=== PATIENT | male | born 1975 | race Caucasian/White ===

== ENCOUNTER 2018-02-01 07:05 | Outpatient (CLI) | payer BC, SELFPAY ==
[2018-02-02 10:11] LABS: Hepatitis B Surface Ag Negative (NEGAT)
[2018-02-02 10:15] LABS: HIV-1/2 Ag & Ab Screen Negative (NEGAT); Hepatitis C Ab w Rflx HCV PCR Negative (NEGAT)
[2018-02-02 11:05] LABS: Syphilis Serology (RPR) Negative (Negative)
[2018-02-02 13:08] LABS: Chlamydia Result Negative; GC Result Negative; Specimen Description URINE
== END 2018-02-01 07:25 ==
PROVIDERS: PCP Nurse Practitioner Family; Visit Provider Nurse Practitioner Family
DX: Z11.3 Encounter for screening for infections with a predominantly sexual mode of transmission (principal); Z11.4 Encounter for screening for human immunodeficiency virus [HIV]; Z11.59 Encounter for screening for other viral diseases
CPT/HCPCS: 36415; 86803; 87340; 87389; 87491; 87591; 86592

== ENCOUNTER 2018-03-01 08:28 | Outpatient (REF) | payer BC, SELFPAY ==
[2018-03-01 12:54] LABS: Cholesterol 247 mg/dL (50-200); Glucose 116 mg/dL (70-100); HDL Cholesterol 50 mg/dL (40-60); LDL CHOLESTEROL 166 mg/dL (<100); Triglyceride 149 mg/dL (30-150)
[2018-03-02 10:23] LABS: Hepatitis B Surface Ag Negative (NEGAT)
[2018-03-02 10:41] LABS: HIV-1/2 Ag & Ab Screen Negative (NEGAT)
[2018-03-02 10:45] LABS: Hepatitis C Ab w Rflx HCV PCR Negative (NEGAT)
== END 2018-03-01 08:48 ==
LOC: NCHCN 08:28
PROVIDERS: PCP Nurse Practitioner Family; Visit Provider Nurse Practitioner Family
DX: Z00.00 Encounter for general adult medical examination without abnormal findings (principal); D22.9 Melanocytic nevi, unspecified; L72.9 Follicular cyst of the skin and subcutaneous tissue, unspecified; Z11.3 Encounter for screening for infections with a predominantly sexual mode of transmission; Z11.4 Encounter for screening for human immunodeficiency virus [HIV]; Z13.1 Encounter for screening for diabetes mellitus; Z13.220 Encounter for screening for lipoid disorders; Z11.59 Encounter for screening for other viral diseases
CPT/HCPCS: 80061; 82947; 83721; 86803; 87340; 87389

== ENCOUNTER 2018-04-11 10:37 | Outpatient (REF) | payer BC, SELFPAY ==
[2018-04-11 13:51] LABS: Abs Immature Grans 0.01 k/cumm (0.0-0.09); Absolute Basophil Count 0.02 k/cumm (0.0-0.2); Absolute Eosinophil Count 0.12 k/cumm (0.0-0.7); Absolute Monocyte Count 0.42 k/cumm (0.11-0.7); Basophils % 0.4; Eosinophils % 2.5; HCT 40.6 % (40.0-50.0); HGB 13.3 g/dL (13.5-17.5); Immature Grans % 0.2; Lymphocytes % 30.8; Mean Corp. HGB Concentration 32.8 g/dL (32.0-36.0); Mean Corpuscular Hemoglobin 29.2 pg (27.0-33.0); Mean Platelet Volume 10.9 fL (8.0-11.0); Monocytes % 8.6; Neutrophils % 57.5; Platelet Count 259 x1000/uL (130-400); RBC 4.56 m/cumm (4.50-6.00); RBC Distribution Width 12.4 % (11.8-14.1); White Blood Cell Count 4.87 k/cumm (4.4-10.8)
== END 2018-04-11 10:57 ==
LOC: NCHCN 10:37
PROVIDERS: PCP Nurse Practitioner Family; Visit Provider Nurse Practitioner Family
DX: R23.8 Other skin changes (principal); F10.11 Alcohol abuse, in remission
CPT/HCPCS: 85025

== ENCOUNTER 2018-04-25 08:24 | Day surgery (SDC) | payer BC, SELFPAY ==
[2018-04-25 08:59] VITALS: BP 118/87; PULSE 77; RESP 16; TEMP 36.3; O2SAT 97
[2018-04-25] MEDS: Lactated Ringers 1,000 ML 80 ML IV (09:20)
[2018-04-25] MEDS: Lidocaine 1% Multi-Dose 50 ML VIAL (10:16)
--- NOTE | 2018-04-25 10:31 | W.PM.DSUDISC ---
Discharge Plan Disposition Patient Disposition: HOME Condition: Good Discharge Details Reason For Visit: R Dupuytren's Contracture Attending Provider: New Royal Primary Care Provider: Marlena Milton Home Meds and New Rx's Prescriptions: New hydrocodone-acetaminophen 5-325 mg tablet 1 tab PO Q4H PRN (Reason: pain) Qty: 5 RF: 0 Continued meloxicam 15 mg tablet 15 mg PO DAILY Qty: 30 RF: 0 acetaminophen [Tylenol] 325 MG tablet 650 mg PO Q6H PRN RF: 0 montelukast 10 MG tablet 10 mg PO DAILY RF: 0 loratadine [Claritin Liqui-Gel] 10 MG capsule 10 mg PO PRN PRN (Reason: allergies) RF: 0 Zyrtec 10 MG capsule 10 mg PO HS RF: 0 Discharge Instructions Additional Instructions: Activity: You are able to perform light activities with the operative hand. It?s important to move your fingers early to keep from being stiff. Once the initial dressing is removed you should work on hand and wrist range of motions. You should avoid heavy lifting or grasping until your follow-up appointment. Light weight and computer work is okay. Do NOT put direct pressure on the wound and avoid keeping in gloves for a prolonged period. Dressing/Bandage: The dressing should stay on for at least 48-72 hours. The wound should then be covered with a dry dressing such as a gauze wrap or large bandaid. It should stay covered until your follow-up appointment. Medications: Acetaminophen/Tylenol Extra-Strength: take two extra-strength tablets (1000mg) every 8 hours for baseline pain control. Do not take in combination with the prescribed pain medication since it contains Tylenol. You should not have more than 3000mg of Tylenol in a single day. NSAIDs: You may take your regular Mobic Hydrocodone was called in for breakthrough pain. Follow-up: 7-10 days Stand Alone Forms: DSU Post op Instructions, Radha Montero (DSU) Activity:: Elevate Remove Dressings/Wound Care:: 48 hours Shower/Bathe:: 48 hours Diet:: As Tolerated Discharge Orders Discharge Orders: Discharge Order (Routine); Ordered 04/25/18 Ordered By: New Royal DS: Diagnosis Discharge Diagnosis (1) Dupuytren's disease of palm of right hand: Status: Acute
[2018-04-25 11:11] VITALS: BP 129/83; PULSE 82; RESP 18; TEMP 35.8; O2SAT 100
--- NOTE | 2018-04-26 15:53 | ROE_ITS ---
DATE OF SURGERY: April 25, 2018 PREOPERATIVE DIAGNOSIS: Right Dupuytren's contracture with prominent palmar nodule. POSTOPERATIVE DIAGNOSIS: Same. SURGERY: Right palmar fasciectomy for Dupuytren's disease. SURGEON: New Royal M.D. ANESTHESIA: MAC ESTIMATED BLOOD LOSS: 5 cc COMPLICATIONS: None. DISPOSITION: The patient was awakened from anesthesia and taken to the PACU in a stable condition. INDICATION FOR PROCEDURE: Eugene is a 42-year-old who works with his hands. He had worsening contrac ture and prominence of a nodule in the palm of his right hand in line with the right ring finger ray. He has tried to modify his gloves and his positioning of his hands, but continues to have pain with any forceful gripping or grasping. It is interfering with his ability to work. He was examined in the office and showed he did not have any significant contracture, but he did have a very prominent D upuytren's nodule. Given the failure of conservative treatment options, I did offer excision of the Dupuytren's contracture including the large nodule. I reviewed the risks of the procedure to include bleeding, infection, pain, stiffness, damage to nerves and vessels, damage to muscles and tendons, a nd recurrence. Despite these risks, he elected to proceed. PROCEDURE DESCRIPTION: Eugene was greeted in the preoperative holding area. His identity was confirm ed. The correct side was identified and marked. The History and Physical was updated and signed. T he consent was reviewed with the patient and signed. The patient was then taken back to the Operatin g Room. He was placed in a supine position with the right hand on a hand table. A nonsterile tourni quet was placed high up on the right arm. Prophylactic antibiotics in the form of cefazolin were giv en. A time-out was performed for safe surgery. The right arm was prepped with ChloraPrep and draped in a standard fashion. The palm and the surgica l site were then anesthetized with a mixture of 1% lidocaine and 0.5% bupivacaine. A MAC anesthetic was administered. The limb was exsanguinated and the tourniquet was inflated for a total of 11 minut es. A Damon type incision was made in the palm overlying the prominent cord and the nodule. The s kin was incised and the dissection was carried down to the level of the cord. The cord was easily id entifiable. Starting at the distalmost extent, the cord was freed up from the surrounding tissues an d it was released. The cord was then manipulated and removed in whole from the palm. The large nodu le was removed in hole and resected. This was taken back all the way into the deep portion of the pa lm near the distal extent of the transverse carpal ligament. This was resected in whole. There was nothing abnormal about the cord and, therefore, it was not sent to pathology. The wound was thorough ly irrigated. The tourniquet was released. There was some ooze from the skin but no arterial bleedi ng. There was no apparent neurovascular damage or injury. The wound was then closed with a #5-0 nyl on stitch. The wound was dressed with Xeroform, 4x4s, Kerlix, and an Bakari wrap. At the end of the case all counts were correct.
== END 2018-04-25 11:15 | disposition home or self-care (01) ==
PROVIDERS: PCP Nurse Practitioner Family; Visit Provider Student in an Organized Health Care Education/Training Program
PROC: (CPT 26123; principal; 2018-04-25 10:15)
DX: M72.0 Palmar fascial fibromatosis [Dupuytren] (principal)
CPT/HCPCS: 26123; J0690; J1885

== ENCOUNTER 2018-05-08 10:27 | Outpatient (REF) | payer BC, SELFPAY ==
--- NOTE | 2018-05-08 10:03 | SKI_PTH ---
PATIENT: Eugene Chan LOC: [facility] U#:[id number] AGE/SX: 42/M ROOM: RE05/08/[address]: Jv Mccann DO : 1975 BED: DIS: 05/08/2018 SPEC #: [id number] RECD: 05/09/18 12:17 STATUS: JADE REAnanda #: [id number] CLEMENT: 05/08/18 10:[address]: Jv Mccann DEPT: Surgical Specimen RECD BY: Leni Guadalupe ENTERED: 05/09/18 12:18 SP TYPE: CARLTON CHENG DR: Marlena Milton Tissues: 1 - SKIN BIOPSY(SHAVE/PUNCH) 2 - SKIN BIOPSY(SHAVE/PUNCH) Procedures: SKIN LEVEL 4 Comments: [id number]
== END 2018-05-08 10:47 ==
LOC: LBN 10:27
PROVIDERS: PCP Nurse Practitioner Family; Referring Provider Nurse Practitioner Family; Visit Provider Otolaryngology Otolaryngology/Facial Plastic Surgery
DX: D22.39 Melanocytic nevi of other parts of face (principal); D22.62 Melanocytic nevi of left upper limb, including shoulder
CPT/HCPCS: 88305

== ENCOUNTER 2019-04-27 07:14 | Outpatient (CLI) | payer BC, SELFPAY ==
[2019-04-27 08:34] LABS: ALT 30 U/L (16-63); AST 13 U/L (15-37); Alkaline Phosphatase 66 U/L (46-116); Anion Gap 7.2 mmol/L (3-11); BUN 18 mg/dL (7-18); Bilirubin, Total 0.5 mg/dL (0.2-1.0); CO2 28.8 mmol/L (21.0-32.0); CREATININE 1.05 mg/dL (0.70-1.30); Chloride 105 mmol/L (98-107); Glucose 115 mg/dL (74-106); Potassium 4.4 mmol/L (3.5-5.1); Sodium 141 mmol/L (136-145); TSH (W/Ref FT4) 1.25 uIU/mL (0.36-3.74); Total Protein 7.3 g/dL (6.4-8.2)
== END 2019-04-27 07:34 ==
PROVIDERS: PCP Nurse Practitioner Family; Visit Provider Nurse Practitioner Family
DX: R73.03 Prediabetes (principal); E78.70 Disorder of bile acid and cholesterol metabolism, unspecified; F10.11 Alcohol abuse, in remission
CPT/HCPCS: 36415; 80053; 83036; 84443

== ENCOUNTER 2019-04-30 00:53 | Outpatient (CLI) | payer BC, SELFPAY ==
--- NOTE | 2019-04-30 08:10 | DI.CT_ITS ---
EXAM: CT HEAD WO CLINICAL HISTORY: SEVERE HEADACHE, R51. TECHNIQUE: Imaging Protocol: Axial computed tomography images with coronal and sagittal reformatted images were created and reviewed COMPARISON: No exams were available for comparison FINDINGS: Ventricles and Extra axial spaces: Normal in size and morphology for the patient's age. Hemorrhage: None. Cerebral parenchyma: Normal. Midline shift: None. Brainstem/Cerebellum: Normal. Calvarium: Normal. Visualized Paranasal sinuses/Mastoids: Clear. IMPRESSION: Normal CT of the head. RADIATION DOSE DELIVERED: DATA REPOSITORY: All CT scans at this facility are submitted to the National Radiology Data Registry (NRDR) Dose Index Registry (DIR) with the [employer] (ACR). RADIATION OPTIMIZATION: All CT scans at this facility use at least one of these dose optimization te chniques: automated exposure control; mA and/or kV adjustment per patient size (includes targeted exa ms where dose is matched to clinical indication); or iterative reconstruction.
== END 2019-04-30 01:13 ==
PROVIDERS: PCP Nurse Practitioner Family; Visit Provider Nurse Practitioner Family
DX: R51 Headache (principal)
CPT/HCPCS: 70450

== ENCOUNTER 2019-05-12 13:33 | Emergency (ER) | payer BC, SELFPAY ==
--- NOTE | 2019-05-12 13:35 | ED.GENADUL_ITS ---
Discharge Plan Disposition Patient Disposition: HOME Condition: Good Discharge Details Chief Complaint: EyeProblem Clinical Impression: Abrasion, corneal, Hx of metal removed from eye Primary Care Provider: Li Vance ED Provider: Tere De Oliveira Home Meds and New Rx's Prescriptions: Continued acetaminophen [Tylenol] 325 MG tablet 650 mg PO Q6H PRN RF: 0 montelukast 10 MG tablet 10 mg PO DAILY RF: 0 loratadine [Claritin Liqui-Gel] 10 MG capsule 10 mg PO PRN PRN (Reason: allergies) RF: 0 Zyrtec 10 MG capsule 10 mg PO HS RF: 0 Discharge Instructions Instructions: Erythromycin (Into the eye), Corneal Abrasion (ED) Additional Instructions: Please use the erythromycin ointment as was instructed by nursing staff. Please apply half an inch to your right eye 4 times daily for the next 5 days. Please follow-up with your supervisor locomotive on Tuesday. If you develop increased pain, fever/chills, discharge from the eye or the new/worsening symptom please seek care urgently once again. Referrals: Li Vance [Primary Care Provider] - Medical Decision Making Patient is a pleasant 43-year-old male presenting today with chief complaint of foreign body in right eye. He reports a prior to arrival he was working under a car. He is not wearing any eye protection. States that he cut a piece of metal in 2 to foreign body in the right eye. States his is able to visualize this and remove it. However, he states that the sensation persisted and they are questioning if there is still a piece of foreign body in the medial canthus. Patient is up-to-date on tetanus. On exam, patient appears nontoxic. He has no notable injection, discharge. No swelling. Pupils are equal round and reactive, extraocular movement are intact. Fluorescein was used and there is a small area of uptake at the medial aspect of the eye near the 3 o'clock position. He did have a dark spot visualized on my naked eye exam in that medial canthus, however this appears to be an enlarged blood vessel when a slit lamp is used. This may be area of possible contusion as patient reports that this was unusual finding for him and his . He will be placed on erythromycin ointment. Advise follow-up with his supervisor locomotive on Tuesday, he does use corrective lenses. He does not wear contacts. He was given return precautions. All his questions or concerns were addressed and is agreement with plan HPI General Mode of arrival: ambulatory . Date/Time Provider Initiated Documentation: 05/12/19 13:34 . Limitations to Documentation: no limitations . Information obtained by: patient . History of Present Illness 43 year old M presents to the emergency department with the chief complaint of FB right eye, described as mild, and is localized to the eyes. Patient reports no radiatio n. Patient started experiencing this minute(s) (15) and it has been now resolved. No relieving factors improve symptom(s), No exacerbating factors reported . Patient notes no other symptoms.. Patient did receive the following treatments prior to arrival, other (washed eye, removed metal FB) Related Data Home Medications Medication Instructions Recorded Confirmed loratadine [Claritin Liqui-Gel] 10 mg PO PRN PRN 10/07/12 05/12/19 montelukast 10 mg PO DAILY 10/07/12 05/12/19 Zyrtec 10 mg PO HS 06/09/14 05/12/19 acetaminophen [Tylenol] 650 mg PO Q6H PRN tab-cap 03/15/17 05/12/19 Allergies Allergy/AdvReac Type Severity Reaction Status Date / Time hay fever Allergy Mild eyes Uncoded 05/12/19 13:47 itch,runny nose Review of Systems Constitutional Constitutional: Reports as per HPI, Denies chills, Denies fatigue, Denies fever(s) and Denies headache(s) Eyes Eyes: Reports as per HPI ENT Ears, Nose, Mouth, and Throat: Denies headache(s) Cardiovascular Cardiovascular: Reports as per HPI, Denies chest pain and Denies lightheadedness Respiratory Respiratory: Denies cough Integumentary/Breasts Skin/Breast: Reports as per HPI, Denies rash, Denies skin pain and Denies skin swelling Neurologic Neurologic: Denies headache(s) and Denies radicular pain Endocrine Endocrine: Denies fatigue [facility] Social History Smoking/Tobacco Use Status: Never Alcohol Intake: never Drug use: Never Do you feel safe in your relationship?: Yes Exam Const General: cooperative, healthy appearing, comfortable, no acute distress, well developed and well groomed Nutritional Appearance: average body habitus and well nourished Orientation: alert, awake and oriented x3 [facility] Head: normal to inspection, normocephalic and atraumatic Ears: hearing grossly normal bilaterally and external ears normal General nose exam: external nose normal and nares normal Face and sinus: normal facial exam and face symmetric Mouth: oral mucosae normal, lip normal and moist mucous membranes Eyes General: appearance normal, both eyes and all related structures Visual Peck: normal visual peck by confrontation Alignment and Position: alignment normal and position normal Periorbital: periorbital findings normal Eyelids: eyelids normal Cornea: corneas abnormal on the right fluorescein used and abrasion (small, at the 3 o'clock position) and fluorescein used Pupils: PERRL and normal by confrontation EOM: EOM intact bilaterally Resp Effort & Inspection: normal respiratory effort, able to speak in complete sentences and no respiratory distress Skin General skin exam: no rashes or lesions noted Neuro General: patient alert, patient awake and patient oriented x3 Cranial Nerves: CN's II-XI intact bilaterally Cognition: normal cognition Speech: speech normal Gait: normal gait Psych Appearance: grossly normal and well kempt Mental Status: mental status grossly normal Speech and Movement: speech and movement normal
[2019-05-12 13:38] VITALS: BP 138/97; PULSE 72; RESP 16; TEMP 36.8; O2SAT 97
[2019-05-12] MEDS: Balanced Salt Solution 15 ML BTL (13:45)
[2019-05-12] MEDS: Fluorescein STRIPS 100/BOX 1 MG OP (13:50)
[2019-05-12] MEDS: Erythromycin Ophth Oint 3.5 GM TUBE OD (13:55)
== END 2019-05-12 13:50 | disposition home or self-care (01) ==
LOC: ER 13:52
PROVIDERS: Emergency Provider Physician Assistant; PCP Nurse Practitioner Family
DX: S05.01XA Injury of conjunctiva and corneal abrasion without foreign body, right eye, initial encounter (principal); X58.XXXA Exposure to other specified factors, initial encounter
CPT/HCPCS: 99284

== ENCOUNTER 2021-01-27 13:22 | Outpatient (CLI) | payer BC, SELFPAY ==
--- NOTE | 2021-01-27 | DI.RAD_ITS ---
Exam(s) XR ANKLE RT COMPLETE EXAM: XR ANKLE RT COMPLETE CLINICAL HISTORY: RT ANKLE PAIN, M25.571. TECHNIQUE: 2D digital imaging was performed of the right ankle. Three images were obtained. AP, la teral and oblique views were obtained. COMPARISON: No exams were available for comparison FINDINGS: BONES: No acute fracture is present. No bony destructive lesion is seen. JOINTS: The ankle mortise is normally aligned. SOFT TISSUE: Normal. IMPRESSION: Unremarkable radiographs of the right ankle. DATA REPOSITORY: RADIATION DOSE DELIVERED:
--- NOTE | 2021-01-27 | DI.RAD_ITS ---
Exam(s) XR FOOT RT COMPLETE EXAM: XR FOOT RT COMPLETE CLINICAL HISTORY: PAIN, M25.571. TECHNIQUE: 2D digital imaging was performed of the right foot. Three images were obtained. AP, obl ique and lateral views were obtained. COMPARISON: No exams were available for comparison FINDINGS: BONES: No acute fracture is present. No bony destructive lesion is seen. JOINTS: No dislocation present. SOFT TISSUE: Normal. IMPRESSION: Unremarkable radiographs of the right foot. DATA REPOSITORY: RADIATION DOSE DELIVERED:
== END 2021-01-27 13:42 ==
PROVIDERS: PCP Nurse Practitioner Family; Visit Provider Nurse Practitioner Family
DX: M25.571 Pain in right ankle and joints of right foot (principal)
CPT/HCPCS: 73610; 73630

== ENCOUNTER 2021-02-27 17:31 | Outpatient (CLI) | payer BC, SELFPAY ==
--- NOTE | 2021-02-27 | DI.RAD_ITS ---
Exam(s) XR TOE RT GREAT EXAM: XR TOE RT GREAT CLINICAL HISTORY: PAIN IN RIGHT TOE. TECHNIQUE: 2D digital imaging was performed. COMPARISON: CR XR FOOT RT COMPLETE from 01/27/2021 FINDINGS: Soft tissue swelling of the great toe. There are abnormal lucency seen in the medial aspect of the p roximal phalanx near the interphalangeal joint. There is also question of an erosion at the medial a spect of the base of the distal phalanx. Findings could be secondary to osteomyelitis gout could als o be considered. No foreign body or abnormal soft tissue gas. IMPRESSION: Soft tissue swelling and bony erosions at the medial interphalangeal joint of the great toe, osteomye litis versus arthritis such as gout. DATA REPOSITORY: RADIATION DOSE DELIVERED:
--- NOTE | 2021-02-27 17:53 | DI.VRAD_ITS ---
PROCEDURE INFORMATION: Exam: XR Right Toe(s) Exam date and time: 02/27/2021 5:39 PM Age: 45 years old Clinical indication: Toes; Patient HX: Pain in right great toe TECHNIQUE: Imaging protocol: XR Right toes. Views: Minimum 2 views. COMPARISON: CR RIGHT GREAT TOE 12/18/2015 3:47 PM FINDINGS: Bones/joints: No acute fracture or dislocation. Suspicious periarticular bony lucencies about the 1st digit interphalangeal joint. Soft tissues: Soft tissue swelling about the 1st digit. IMPRESSION: Nonspecific soft tissue swelling about the 1st digit with suspicious periarticular bony lucencies about the interphalangeal joint. Presence of any infection should be excluded on clinical grounds. Dictated and Authenticated by: Byron Valentine MD. Ordering:RILEY Brewer MD
== END 2021-02-27 17:51 ==
PROVIDERS: PCP Nurse Practitioner Family; Visit Provider Physician Assistant Medical
DX: M25.571 Pain in right ankle and joints of right foot (principal); M79.89 Other specified soft tissue disorders
CPT/HCPCS: 73660

== ENCOUNTER 2022-01-07 13:36 | Outpatient (CLI) | payer BC, SELFPAY ==
--- NOTE | 2022-01-07 14:18 | DI.RAD_ITS ---
Exam(s) XR ABDOMEN FLAT PLATE EXAM: XR ABDOMEN FLAT PLATE CLINICAL HISTORY: CONSTIPATION-K59.00 TECHNIQUE: COMPARISON: No exams were available for comparison FINDINGS: Single AP view was obtained. Bowel gas pattern is within normal limits. No gross organomegaly. No other significant abnormality seen. IMPRESSION: Negative single view of the abdomen. RADIATION DOSE DELIVERED: Total DLP
--- NOTE | 2022-01-07 14:20 | DI.RAD_ITS ---
Exam(s) XR HIP RT COMPLETE AP PELVIS EXAM: XR HIP RT COMPLETE AP PELVIS CLINICAL HISTORY: PAIN IN RIGHT HIP-M25.551 TECHNIQUE: COMPARISON: No exams were available for comparison FINDINGS: Two views were obtained. There is slight irregularity of the superior acetabular cortex on the right . Cartilaginous joint spaces of the hips may be slightly narrowed. Femoral heads appear intact as v isualized. IMPRESSION: Mild degenerative changes of the hips. RADIATION DOSE DELIVERED: Total DLP
== END 2022-01-07 13:56 ==
LOC: DI 13:38
PROVIDERS: PCP Nurse Practitioner Family; Visit Provider Physician Assistant Medical
DX: M16.0 Bilateral primary osteoarthritis of hip (principal); K59.00 Constipation, unspecified
CPT/HCPCS: 73502; 74018

== ENCOUNTER 2022-01-07 14:22 | Outpatient (REF) | payer BC, SELFPAY ==
--- OUTSIDE RECORDS SUMMARY | 2022-01-07 14:27 | XMS_ITS | Encounter Summary ---
:1975 Author Organization [facility] Address [address] [place] [address] Care Team Providers Name Role Phone Unavailable Primary Care Provider Unavailable Encounter Details Date Type Department Care Team Description 05/08/2018 Hospital Encounter [facility]- Cici Calderon, Provider, [facility] 0 [facility] [phone] [place] [address] (Work) [phone] Social History Tobacco Use Types Packs/Day Years Used Date Smoking Tobacco: Never Assessed Sex Assigned at Date Recorded Not on file documented as of this encounter Discharge Disposition Disposition Code Departure Means Destination Home or Self Jail documented in this encounter Plan of Treatment Not on filedocumented as of this encounter Visit Diagnoses Not on filedocumented in this encounter
--- OUTSIDE RECORDS SUMMARY | 2022-01-07 14:27 | XMS_ITS | Encounter Summary ---
:1975 Author Organization [facility] [place] [address] Care Team Providers Name Role Phone Yoan Marlena Ceasar BOOTH Primary Care Provider Encounter Details Date Type Department Care Team Description 02/07/2017 Telephone Hematology and Oncology at Chela Moran MD [facility] [place] Marcus su HEMATOLOGY/[place] [address] [place] [address] [phone] (Wo rk) Social History Tobacco Use Types Packs/Day Years Used Date Smoking Tobacco: Never Assessed Sex Assigned at Date Recorded Not on file documented as of this encounter Miscellaneous Notes Telephone Encounter - Chela Min MD - 02/07/2017 1:27 PM EST Marlena CHOUDHARY from [facility] calling to discuss Eugene. He has a 10 cm ecchymoses above his right knee that has been present for about 5 weeks and is still present. He has a history of easy bruising. Hehas a history of bruises without trauma. His brother and mother have vwf disease. He has no cbc on file in the [facility] office. He recently had a normal PT, PTT, INR. He had vwf labs drawn. Factor 8 assay was 86% (55-205). Ristocetin co factor 68. vwf factor 8 ag normal. No lab evidence of vwf disease. According to the above results, this is not consistent with vwf disease (confirming tests (total plasma VWF antigen, VWF function (VWF ristocetin cofactor assay), and plasma factor VIII level are normal). Advised to check a cbc. Discussed with Dr. Pulliam. Marlena will put in a referral to our [facility] for further evaluation. Eugene has several questions about his risk due to his FH. Dr. Chela Min MD Hemophilia Attending Physician I agreed with Dr. Min's recommendation to check CBC to rule out thrombocytopenia in the meantime.We will also check if he is on NSAID. We will schedule the patient to complete hemostasis work up here at [facility]. Cary Pulliam MD documented in this encounter Plan of Treatment Not on filedocumented as of this encounter Visit Diagnoses Not on filedocumented in this encounter Care Teams Carpenters Supervisor Relationship Specialty Start Date End Date Marlena Milton, SENIOR ELECTRICAL ESTIMATOR PCP - General Family Medicine 02/09/17 [address] [place] [address] documented as of this encounter
--- OUTSIDE RECORDS SUMMARY | 2022-01-07 14:27 | XMS_ITS | Continuity of Care Document ---
:1975 Author Organization [facility] e Address [address] [place] [address] Encounter [facility] NBR [id number] Date(s): 12/29/21 - 12/29/21 [facility] [address] [place] [address]- Encounter Diagnosis Encounter for drug screening (Discharge Diagnosis) - 12/29/21 Discharge Disposition: Home or Self Care Attending Physician: Levi Fofana. MARIA FERNANDA
--- OUTSIDE RECORDS SUMMARY | 2022-01-07 14:27 | XMS_ITS | Encounter Summary ---
:1975 Author Organization [facility] [place] [address] Care Team Providers Name Role Phone Marlena Milton APRN Primary Care Provider Encounter Details Date Type Department Care Team Description 03/09/2017 Telephone Hematology and Oncol ogy at [facility] [place] [address] Social History Tobacco Use Types Packs/Day Years Used Date Smoking Tobacco: Former Cigarettes 0.3 0.5 Quit : 02/22/1996 Smokeless Tobacco: Never Sex Assigned at Date Recorded Not on file documented as of this encounter Miscellaneous Notes Telephone Encounter - Kenya Castillo RN - 03/09/2017 9:58 AM EST T/c to patient residence and detailed message left with his , Rody, with contact information toreturn call to discuss results and/or recommendations futher. Kenya Castillo MSN RN ===View-only below this line=== ----- Message ----- From: Cary Pulliam MD Sent: 03/08/2017 3:49 PM To: Kenya Castillo, RN Subject: please call Kenya: please call to review normal lab result. Thanks, Cary Results for EUGENE MINA ( ) as of 03/10/2017 09:03 Ref. Range 02/28/2017 11:51 PT Latest Ref Range: 11.8 - 14.0 sec 13.8 INR Latest Ref Range: 0.9 - 1.1 1.1 PTT Latest Ref Range: 25 - 35 sec 30 Fibrinogen Latest Ref Range: 180 - 510 mg/dL 348 Thrombin Time Latest Ref Range: 15 - 20 sec 17 Save Plasma Unknown Sample saved in Lab Factor 8 Assay Latest Ref Range: 50 - 150 % 73 vWF Antigen Latest Units: % 54 vWF Anti Interp Unknown ABO blood group h... vWF Activity Latest Ref Range: 50 - 150 % activity 77 Dr. Pulliam's clinic note 02/28/17 Reprinted in part below. In summary, Eugene has no evidence of bleeding disorder. His easy bruising is likely due to NSAIDs use. We encourage him to avoid NSAIDs and stop drinking alcohol. documented in this encounter Plan of Treatment Not on filedocumented as of this encounter Visit Diagnoses Not on filedocumented in this encounter Care Teams Manager Ob Relationship Specialty Start Date End Date Marlena Milton, CARE TRANSPORT NURSE PCP - General Family Medicine 02/09/17 [address] [place] [address] documented as of this encounter
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
--- OUTSIDE RECORDS SUMMARY | 2022-01-07 14:27 | XMS_ITS | Encounter Summary ---
:1975 Author Organization [facility] [place] [address] Care Team Providers Name Role Phone Marlena Milton Ceasar BOOTH Primary Care Provider Encounter Details Date Type Department Care Team Description 02/28/2017 Hospital Encounter Hematology and Oncol ogy at [facility] [place] [address] Social History Tobacco Use Types Packs/Day Years Used Date Smoking Tobacco: Former Cigarettes 0.3 0.5 Quit : 02/22/1996 Smokeless Tobacco: Never Sex Assigned at Date Recorded Not on file documented as of this encounter Medications at Time of Discharge Medication Sig Dispensed Refills Start Date End Date indomethacin (INDOCIN) 50 50 mg 3 times daily. 0 02/22/2017 mg Capsule acetaminophen (TYLENOL) 500 Take 1,000 mg by 0 mg Tablet mouth every 6 hours as needed for Pain. documented as of this encounter Plan of Treatment Not on filedocumented as of this encounter Procedures Procedure Name Priority Date/Time Associated Comments Diagnosis SAVE PLASMA FOR Routine 02/28/2017 11:51 Ecchymosis Results for this FUTURE COAG STUDIES AM EST procedur e are in the results section. HEMOGRAM Routine 02/28/2017 11:51 Ecchymosis Results for this AM EST procedure are i n the results section. DIFFERENTIAL, Routine 02/28/2017 11:51 Ecchymosis Results fo r this AUTOMATED AM EST procedure are i n the results section. VON WILLEBRAND FACTOR Routine 02/28/2017 11:51 Re sults for this ANTIGEN AM EST procedure are i n the results section. VON WILLEBRAND FACTOR Routine 02/28/2017 11:51 Re sults for this ACTIVITY AM EST procedure are i n the results section. APTT Routine 02/28/2017 11:51 Results for this AM EST procedure are i n the results section. THROMBIN TIME Routine 02/28/2017 11:51 Results fo r this AM EST procedure are i n the results section. PROTHROMBIN TIME Routine 02/28/2017 11:51 Results for this AM EST procedure are i n the results section. FIBRINOGEN Routine 02/28/2017 11:51 Results for this AM EST procedure are i n the results section. FACTOR 8 ASSAY Routine 02/28/2017 11:51 Results f or this AM EST procedure are i n the results section. CBC (WITH DIFF) Routine 02/28/2017 11:51 Ecchymosis AM EST documented in this encounter Results Factor 8 assay (02/28/2017 11:51 AM EST) P athologist Signature Factor 8 Assay 73 50 - 150 % [facility] Specimen Anatomical Collection Method Collection Time Receive d Time (Source) Location / / Volume Laterality Blood specimen Venous Draw / 02/28/2017 11:51 02/28/19 18 (specimen) Unknown AM EST 11:56 AM EST Resulting Agency Comment Spec In Lab Cary Pulliam MD HEMATOLOGY ORDERABLES Performing Organization Address City/State/[place] [address] Von Willebrand Factor Antigen (02/28/2017 11:51 AM EST) P athologist Signature vWF Antigen 54 % [facility] Comment: Interpret results with caution. Specimen possibly compromised due to multiple freeze thaw cycles. vWF Anti Interp ABO blood group has a signif icant influence on vWF:Ag levels in normal [facility] individuals*. ??Type O individuals have the lowest mean le vels: 75% HOSPITAL LABOR[facility]ORY (range:36-157% ?? 2SD). ??* Tia GOLD, et. al. ??The Effect of ABO Blood Group on the Diagnosis of von Willebrand Disease. ??Blood, 1987:69(6) : 9705-2247 Specimen Anatomical Collection Method Collection Time Receive d Time (Source) Location / / Volume Laterality Blood specimen Venous Draw / 02/28/2017 11:51 02/28/19 18 (specimen) Unknown AM EST 11:56 AM EST Resulting Agency Comment Spec In Lab Cary Pulliam MD HEMATOLOGY ORDERABLES Performing Organization Address [facility] [place] [address] Von Willebrand Factor Activity (02/28/2017 11:51 AM EST) athologist Signature vWF Activity 77 50 - 150 % [facility] Comment: Methodology: Immunoturbidimetric assay This test was developed and its performa nce characteristics determined by [facility]. It h as not been cleared or approved by the FDA. The laboratory is regulated under [place] as qualified to perform high complexity testing. This test is used fo r clinical purposes. It should not be regarded as investigational or for resea [facility]. Specimen Anatomical Collection Method Collection Time Receive d Time (Source) Location / / Volume Laterality Blood specimen Venous Draw / 02/28/2017 11:51 02/28/19 18 (specimen) Unknown AM EST 11:56 AM EST Resulting Agency Comment Spec In Lab Cary Pulliam MD HEMATOLOGY ORDERABLES Performing Organization Address [facility]/ZIP Code Phon e Number [address] Thrombin time (02/28/2017 11:51 AM EST) athologist Signature Thrombin Time 17 15 - 20 [facility] Comment: A prolongation in the thrombin time (>20 seconds) may be indicative of hypofibrinogenemia or dysfibrinogenemia. The thrombin time will be prolonged, often markedly so, by the presence of he nemo or direct thrombin inhibitors (argatroban, bivalirudin, dabigatran) in the specimen. Specimen Anatomical Collection Method Collection Time Receive d Time (Source) Location / / Volume Laterality Blood specimen Venous Draw / 02/28/2017 11:51 02/28/19 18 (specimen) Unknown AM EST 11:56 AM EST Resulting Agency Comment Spec In Lab Cary Pulliam MD HEMATOLOGY ORDERABLES Performing Organization Address City/State/[place] [address] Fibrinogen (02/28/2017 11:51 AM EST) P athologist Signature Fibrinogen 348 180 - 510 [facility] mg/dL [facility] Comment: A fibrinogen level >100 mg/dL is adequat e for hemostasis in most patients without underlying bleeding disorders. Specimen Anatomical Collection Method Collection Time Receive d Time (Source) Location / / Volume Laterality Blood specimen Venous Draw / 02/28/2017 11:51 02/28/19 18 (specimen) Unknown AM EST 11:56 AM EST Resulting Agency Comment Spec In Lab Cary Pulliam MD HEMATOLOGY ORDERABLES Performing Organization Address City/[facility]/ZIP Code Phon e Number [address] Prothrombin Time (02/28/2017 11:51 AM EST) athologist Signature PT 13.8 11.8 - 14.0 [facility] LABORATORY INR 1.1 0.9 - 1.1 [facility] Comment: An INR <2.0 indicates adequate procoagul ant activity for hemostasis in most patients without underlying bleeding dis orders, though the INR may not adequately reflect hemostatic capacity i n patients with liver disease and synthetic impairment. The recommended ta rget INR range for therapeutic anticoagulation is 2.0 ? 3.0 for most applications, though lower and higher ranges may be appropriate depending on c linical circumstances. Specimen Anatomical Collection Method Collection Time Receive d Time (Source) Location / / Volume Laterality Blood specimen Venous Draw / 02/28/2017 11:51 02/28/19 18 (specimen) Unknown AM EST 11:56 AM EST Resulting Agency Comment Spec In Lab Cary Pulliam MD HEMATOLOGY ORDERABLES Performing Organization Address City/State/[place] [address] APTT (02/28/2017 11:51 AM EST) P athologist Signature PTT 30 25 - 35 sec [facility] Comment: The recommended therapeutic range for fu ll dose, unfractionated heparin at [facility] is 80 ? 114 seconds. The use of the anti-Xa (heparin) level rather than the PTT is recommended for monitoring anticoagul ation intensity in critically ill patients receiving unfractionated hepari n by continuous IV infusion. Specimen Anatomical Collection Method Collection Time Receive d Time (Source) Location / / Volume Laterality Blood specimen Venous Draw / 02/28/2017 11:51 02/28/19 18 (specimen) Unknown AM EST 11:56 AM EST Resulting Agency Comment Spec In Lab Cary Pulliam MD HEMATOLOGY ORDERABLES Performing Organization Address City/State/[place] [address] Differential, Automated (02/28/2017 11:51 AM EST) athologist Signature Neutrophils % 58.0 % [facility] Neutr Abs (ANC) 3.61 1.70 - [facility] 6.10 [facility] x10(3)[facility] LABORATORY Lymphocytes % 29.5 % [facility] Lymphocytes Abs 1.8 0.9 - 3.2 [facility] x10(3)/[facility] LABORATORY Monocytes % 8.1 % [facility] Monocyte Abs 0.5 0.3 - 0.9 [facility] x10(3)[facility] LABORATORY Eosinophils % 3.1 % [facility] Eosinophils Abs 0.2 0.0 - 0.4 [facility] x10(3)[facility] LABORATORY Basophils % 0.8 % [facility] Basophils Abs 0.0 0.0 - 0.1 [facility] x10(3)[facility] LABORATORY Immature Gran % 0.50 % [facility] Comment: Immature granulocytes(IG's)percentage an d absolute count will include metamyelocytes, myelocytes, and promyelo cytes. Blood smears from CBCs yielding IG's will be scanned manually for concor dance. If this scan disagrees with the automated IG or if promyelocytes are not ed, a manual differential will be performed. Kaylee Gran Abs 0.03 0.00 - 0.04 x10(3)/[facility] LAB[facility]ORY Specimen Anatomical Collection Method Collection Time Receive d Time (Source) Location / / Volume Laterality Blood specimen 02/28/2017 11:51 8 (specimen) AM EST 11:56 AM EST Resulting Agency Comment Spec In Lab Cary Pulliam MD HEMATOLOGY ORDERABLES Performing Organization Address City/State/[place] [address] (ABNORMAL) Hemogram (02/28/2017 11:51 AM EST) Analysis Performed At Patho logist Time Signature WBC 6.2 4.0 - 9.5 [facility] x10(3)/[facility] LABORATORY RBC 4.51 (L) 4.58 - [facility] 5.54 [facility] x10(6)/[facility] LABORATORY Hemoglobin 13.5 (L) 13.7 - [facility] 16.5 gm/dL [facility] Hematocrit 40.5 40.5 - [facility] 48.5 % [facility] MCV 89.8 82.9 - [facility] 93.1 [facility] LABORATORY MCH 29.9 27.5 - [facility] 32.1 pg [facility] MCHC 33.3 32.0 - [facility] 35.7 gm/dL [facility] Platelets 263 145 - 357 [facility] x10(3)/[facility] LABORATORY RDWSD 39.1 36.0 - [facility] 45.0 [facility] LABORATORY RDWCV 11.9 11.4 - [facility] 13.8 % [facility] LAB[facility]ATORY MPV 9.5 7.6 - 12.9 [facility] LABORATORY nRBC % Auto 0.0 % [facility] nRBC Abs Auto 0.000 0.000 - [facility] 0.000 [facility] x10(3)/[facility] LABORATORY Specimen Anatomical Collection Method Collection Time Receive d Time (Source) Location / / Volume Laterality Blood specimen 02/28/2017 11:51 8 (specimen) AM EST 11:56 AM EST Resulting Agency Comment Spec In Lab Cary Pulliam MD HEMATOLOGY ORDERABLES Performing Organization Address City/State/[place] [address] Save Plasma for future Coag Studies (02/28/2017 11:51 AM EST) Analysis Performed At Patho logist Time Signature Save Plasma Sample JENNI HORN saved in [facility] LABORATORY Specimen Anatomical Collection Method Collection Time Receive d Time (Source) Location / / Volume Laterality Blood specimen 02/28/2017 11:51 8 (specimen) AM EST 11:56 AM EST Cary Pulliam MD HEMATOLOGY ORDERABLES Performing Organization Address City/State/[place] [address] documented in this encounter Visit Diagnoses Diagnosis Ecchymosis Other specified circulatory system disor ders documented in this encounter Care Teams Chemical Engineer Relationship Specialty Start Date End Date Marlena Milton, REPAIR MECHANIC PCP - General Family Medicine 02/09/17 [address] [place] [address] documented as of this encounter
--- OUTSIDE RECORDS SUMMARY | 2022-01-07 14:27 | XMS_ITS | Encounter Summary ---
:1975 Author Organization [facility] Address [address] [place] [address] Care Team Providers Name Role Phone Unknown, Provider Primary Care Provider Encounter Details Date Type Department Care Team Description 05/08/2018 Results Only [facility]- Santana Jennings, [address] [place], [place] [id number] (Wo rk) Social History Tobacco Use Types Packs/Day Years Used Date Smoking Tobacco: Never Assessed Sex Assigned at Date Recorded Not on file documented as of this encounter Plan of Treatment Not on filedocumented as of this encounter Procedures Procedure Name Priority Date/Time Associated Diagnosis Comme [facility] SURGICAL PATHOLOGY Routine 05/08/2018 16:06 Resul ts for this EDT procedure are i n the results section. documented in this encounter Results SURGICAL PATHOLOGY (05/08/2018 16:06 EDT) Component Value Ref Test Analysis Performed At [facility] Method Time Signature Pathology SURGICAL PATHOLOGY REPORT [facility] MEDICAL Report: Reports generated via electronic interface contain [facility] data; CENTER however they are lacking the format of the original report. LABORATORY Caution should be taken when reading/interpreting unformat chely reports. SERVICES Name: ? EUGENE MINA ? Accession #: ? [id number] ? : ? 1975 (Age: [age]) ??M ? Collect Date: ? 05/08/2018 ? Location: ? [facility] ? Receive Date: ? 05/09/2018 ? Provider: SANTANA WHITNEY DO Copy to: CURTIS PERES ASSOCIATE PROFESSOR OF AUTOMATION ? Final Pathologic Diagnosis: A. ??SKIN OF SHOULDER, LEFT POSTERIOR, SHAVE BIOPSY: - Predominantly intradermal compound nevus. B. ??SKIN OF MELOLABIAL FOLD, RIGHT, SHAVE BIOPSY: - Intradermal nevus, ulcerated and traumatized. ??See christ t. Comment: Marketing Manager [employer] slides of this case were reviewed at intradep artmental consultation conference. ??(Dr. Duque)/[facility] Document reviewed and electronically signed by: HERB DUQUE MD Report ??Date: 05/10/2018 13:54 By the signature above, the attending physician certifies th at he/she has personally conducted a gross and/or microscopic examin ation of the described specimens and rendered or confirmed the above diagnosis. Specimen(s) Received: A. ??Left posterior shoulder (#1) B. ??Right melolabial fold (#2) Clinical History: Non-healing skin lesions, bleeding skin lesions, ? check vas cular lesion; clinical diagnosis code: D49.2 Gross Description: A. ?Received in formalin labelled with proper patie nt identification (initials L, J) and left posterior shou lder is a shave biopsy of junior mottled skin (1.2 x 1.1 x 0.1 cm). There is an eccentric pale-junior papule (0.5 x 0.4 x 0.1 cm). The resection margin is inked blue and the specimen is serially sectioned and entirely submitted in A1. Additionally received in the container is a sliver of pink-junior, pos sible skin (0.8 x 0.1 x 0.1 cm), which is submitted intact in A2. B. ?Received in formalin labelled with proper patie nt identification (initials L, J) and right nasolabial fo ld is a shave biopsy of a mottled junior brown, granular papule (0.5 x 0.4 x 0.2 cm). The resection margin is inked blue and the specimen is bisected and submitted in B1. MARIA FERNANDA Macias (ASCP) 05/09/2018 4:27 PM End of Report Specimen Anatomical Collection Method Collection Time Receive d Time (Source) Location / / Volume Laterality 05/08/2018 16:06 05/09/2018 EDT 16:06 EDT Santana Whitney DO PATHOLOGY ORDERABLES Performing Organization Address City/State/ZIP Code Phon e Number [facility] [address] [place] [address] SERVICES documented in this encounter Visit Diagnoses Not on filedocumented in this encounter Care Teams Air Quality Chemist Relationship Specialty Start Date End Date Unknown, Provider, PCP - General 05/09/18 documented as of this encounter
--- OUTSIDE RECORDS SUMMARY | 2022-01-07 14:27 | XMS_ITS | Encounter Summary ---
:1975 Author Organization [place] [address] Care Team Providers Name Role Phone Marlena Milton APRN Primary Care Provider Reason for Visit Consultation (GONZALEZ) - Closed Specialty Diagnoses / Procedures Referred By Contact Refer red To Contact Hematology and Diagnoses ecchymosis family history of vonwillerbrands disease Marlena Milton APRN [facility] Hem Onc 3k Oncology [address] [facility] [address] [place] [phone] Fax: Referral ID Status Reason Start Date Expiration Date Visits V isits Requested Authorized [id number] Closed Consult, Test 02/04/2017 02/04/2018 [facility] PCP Updated and/or Approved Encounter Details Date Type Department Care Team Description 02/28/2017 Office Visit Hematology and Cary Pulliam MD [facility] [address] HEMATOLOGY/[place] [address] Ecchymosis; Oncology at [facility] Kenya Castillo RN Easy bruising; [facility] Chela Min MD [facility] [address] HEMATOLOGY/[place] [address] Family history of bleeding disorder DANIEL [place] [id number] Social History Tobacco Use Types Packs/Day Years Used Date Smoking Tobacco: Former Cigarettes 0.3 0.5 Quit : 02/22/1996 Smokeless Tobacco: Never Sex Assigned at Date Recorded Not on file documented as of this encounter Last Filed Vital Signs Vital Sign Reading Time Taken Comments Blood Pressure 139/89 02/28/2017 9:59 AM EST Pulse 80 02/28/2017 9:59 AM EST Temperature 36.4 ??C (97.5 ??F) 02/28/2017 9:59 AM EST Respiratory Rate 18 02/28/2017 9:59 AM EST Oxygen Saturation 99% 02/28/2017 9:59 AM EST Inhaled Oxygen Concentration - - Weight 96.8 kg (213 lb 6.4 oz) 02/28/2017 9:59 AM EST Height 178.3 cm (5' 10.2) 02/28/2017 9:59 AM EST Body Mass Index 30.45 02/28/2017 9:59 AM EST documented in this encounter Progress Notes Chela Min MD - 02/28/2017 10:00 AM EST Coagulation Clinic New Patient Eugene Mina 1975 [id number] HPI: Eugnee Mina is a 41 y.o. male presenting as a new patient to clinic today for a history of bruising and easy bleeding. His pcp called on 02/07. My note: He has a 10 cm ecchymoses above his right knee that has been present for about 5 weeks and is still present. He has a history of easy bruising. He has a history of bruises without trauma. His brother and mother have vwf disease. He has no cbc on file in the Family practice office. He recently had a normal PT, PTT, INR. He had vwf labs drawn. Factor 8 assay was 86% (55-205). Ristocetin co factor 68. vwf factor 8 ag normal. No lab evidence of vwf disease. ??According to the above results, this is not consistent with vwf disease (confirming tests (total plasma VWF antigen, VWF function (VWF ristocetin cofactor assay), and plasma factor VIII level are normal). Advised to check a cbc. Discussed with Dr. Pulliam. Marlena will put in a referral to our Coag clinic for further evaluation. Eugene has several questions about his risk due to his FH. Kenya and Dr. Pulliam were sent a picture of his left knee bruise by his . He was advised to d/c nsaids. ? Both his parents reported to have vwf. Father had hemophilia. His father passed (dm, HTN, cardiac issues, tb). His mother had a hemorrhagic stroke (no fall, no HTN). She was in the ICU. He does not know the details about his mother's vwd (how diagnosed, level). His parents had 3 boys. Eugene and his have 2 children (girls 15 years old and 10 years old). One of his children had a borderline level of vwf. Eugene was checked for vwd about 10 years ago. He is a former smoker. Smoked for 6 months-1 year when he was about 20 year olds. No illicit drugs. OH use below. He has been using ibuprofen daily. He has 'spinal arthritis' and he is a trucking contractor. He experienced a fall onto his back and had a bruise there which resolved but he was left with back pain. He has been taking 800 mg three times a day for 5-6 years. He reports he is an alcoholic. He stopped drinkingcompletely on 02/12. He was drinking everyday (3-4 large sized/double beers a day). He has been feeling chilled since stopping drinking. He has been drinking since he was 17 years old almost daily but his use has increased over the last year or so. He cannot recall bleeding as a kid and never had transfusions or was hospitalization for bleeds. He has never had a blood transfusion in his life. He had his wisdom teeth removed (one at a time). He reports they were one at a time cause of risk of bleeding. He also had all his teeth removed (upper andlower, has dentures). He had dental implants before but he got an infection and bleeding and the implants were removed (pus sacs were forming) and he was told he needs dentures. For the episodes of bleeding during these procedures they did packing, no hospitalizations, no ER visits. These were all done between 1997- 2001. He was not taking ibuprofen during this time. He was drinking at this time, 1-3 regular sized beers a day. He needed stitches and needed packing for his dental extractions. He had at least 10 dental procedures and 2/10 of these procedures he had bleeding. Last Tuesday, he had a gout attack in his big toe. He was started on indomethacin. He has taken about5 days of this and will take it for 7 days. He has not yet taken it today since he kept himself npo in case labs were needed. He had one prior gout attack in the past. He feels this attack was due to diet (pickled sausages). he wonders if it is also because he stopped drinking. If this pain in his toereoccurs (it is better now) he was told to take another 5-7 day course of indomethacin which he has at home. He reports bruising since November. He has had a raised bruise above his right knee twice. Bruises also showed up on his chest and arms and left leg. He does not have any current bruises like this; he has a faint bruise where his right knee bruise was. The first bruise was his right knee. No joint bleeding. No new bruising. No trauma associated with the bruising. He had had easy bleeding for 'most of his life.' He cuts himself shaving and it will bleed for 2 days. He once had a doctor at [facility] do a BT and was told it was 'right on the line.' Tonsillectomy cpmzyd58 years old (no transfusions, cannot recall staying overnight, no cautery). He had a nosebleed a year ago (no cautery, no packing). He feels his memory has been affected due to OH. He takes no other herbs, supplements, meds other than indomethacin for 7 days and tylenol now. He is off ibuprofen completely and he is not drinking since 02/12. Since stopping drinking and being off ibuprofen he has noticed his bruising is much better. 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 Current Medications: Medications <Not Reviewed> Not on File Past Medical & Surgical History: Back pain Tonsillectomy [place] teeth removed Full dental extraction for upper and lower dentures Elevated Cr FH hemophilia in dad FH vwd in mom (reported in dad but unlikely to have both hemophilia and vwd) Allergies: No Known Allergies Family History: See above Social History: See above for details Social History Social History ??? Marital status: Spouse name: N/A ??? Number of children: N/A ??? Years of education: N/A Occupational History ??? Not on file. Social History Main Topics ??? Smoking status: Former Smoker Packs/day: 0.25 Years: 0.50 Types: Cigarettes Quit date: 02/22/1996 ??? Smokeless tobacco: Never Used ??? Alcohol use Not on file ??? Drug use: Not on file ??? Sexual activity: Not on file Other Topics Concern ??? Not on file Social History Narrative ??? No narrative on file Review of systems: See above Physical Exam: BP 139/89 (Patient Position: Sitting) Pulse 80 Temp 36.4 ??C (97.5 ??F) (Oral) Resp 18 Ht 178.3 cm (5' 10.2) Wt 96.8 kg (213 lb 6.4 oz) SpO2 99% BMI 30.45 kg/m2 Gen: Patient of apparent stated age, well nourished, well developed, awake, alert, NAD. with him today. Neck: Supple Mouth: no exudate, no oral ulcers or lesions, full dentures in place upper and lower CV: + S1, S2, RRR, no murmur Resp: CTA B/L Hands: raised non tender 1 cm nodule on palm Abd: normoactive bowel sounds, soft, nontender, nondistended, no appreciable HSM Ext: resolving faint yellow bruise above right knee (compared to picture his sent to us on 02/10 much improved). No LE edema or tenderness. Skin: faint bruise noted above. No bruises on skin examined (face, neck, back, arms, legs, abdomen) Musk: joint rom full at knees, ankles Neuro: follows commands, sensation intact bilaterally, normal gait Labs: No results found for this or any previous visit (from the past 24 hour(s)). None in our system Scanned documents 02/09 labs: Cr 1.23, GFR greater or eq to 60, albumin 4, t bili 0.35, alk phos 66,ast 9, alt 38, other chem 7 wnl Assessment and Plan: Eugene Mina is a 41 y.o. who presents with reported easy bruising since November and easy bleeding since he was a teenager. He endorses a FH of vwf disease in his mother and father but also a history of hemophilia in his father who experienced joint bleeds. He has 2 children and reports one has a low level of vwd. He has a 5-6 year history of daily ibuprofen use (800 mg tid). He is currently on indomethacin since 02/22/17 for gout. He was a heavy drinker and this past year especially. He has stopped drinking since 02/12/17. According to his pcp, his evaluation for vwd (confirming tests (total plasma VWF antigen, VWF function (VWF ristocetin cofactor assay), and plasma factor VIII level are normal), are not consistent withvwd disease however we do not have these records and Eugene garcia these were done in 2000. He was reported to have a normal PT, PTT, INR at the pcp office recently. Unable to see his vwf Ag, activity and factor 8 however these were done in 2000 and he has had reported easy bruising since November. Unlikely his father had both hemophilia and vwd disease and given the pattern of inheritance and his history (he has brothers and all female children) not concerned for Hemophilia at this time. We will investigate for vwd. Cannot evaluate for platelet dysfunction given he is on indomethacin and effects on his platelets will last for at least 7 days. Level of suspicion low for vwd. His bruising is likely due to the combination of high doses of ibuprofen and daily heavy OH use. Will check the following: ?? CBC ?? PT, PTT, INR ?? TT ?? Fibrinogen ?? vwf activity and Ag ?? Factor 8 assay ?? Continue to abstain from alcohol ?? After he has completed his course of indomethacin (about 2 more days) for gout would avoid NSAIDS(would suggest alternate agent if he has a recurrent attack or a prophylactic medication if he continues to have attacks keeping in mind his Cr) ?? Evaluate back pain at his PCP office; perhaps a lidocaine patch or tylenol at a scheduled dose (keeping in mind liver function and OH history) would be a better choice and further workup of the cause of his back pain is warranted (is this arthritis, slipped disc, etc) ?? Evaluate elevated Cr at his PCP office. This may be secondary to chronic nsaid use Will call him back with the above results and determine our next steps. I have routed this note to Marlena Milton APRN Patient seen and discussed with Dr. Shasha Min M.D., M.S. Hematology & Oncology Fellow Pager: [phone] 02/28/17 10:06 AM Cary Pulliam MD - 02/28/2017 10:00 AM EST +*+*+*+*+*+*+*+*+*+*+*+*+*+*+*+*+*+*+*+*+*+*+*+*+*+*+*+*+*+*+*+*+*+*+*+*+*+* Hematophilia Attending Physician I have independently interviewed and examined this patient in the outpatient clinic and have personally reviewed the relevant clinical, laboratory and radiological data with , Hematology/Oncology Fellow. Please refer to the comprehensive consultation note above, with which I concur, for complete details of our encounter with this patient. I have reviewed and endorse the recommendations as outlined and have made any additions/corrections below. Mr. Mina is a 41 year old man with family history of bleeding disorder who was referred to our clinic for evaluation of bleeding work up. He has presented with easy bruising. In brief, he has noticed increased spontaneous easy bruising. He last developed a bruise over his knee which took over a month to heal. He did not recall any trauma to the site. He denies any joint bleeding. He has been taking ibuprofen on daily basis for the lats 4-5 years for his back pain. He has stopped taking ibuprofen since before per our instruction and his bruise has almost resolved. However, he was started on indomethacin (NSAID) recently for his acute gout attack. Eugene has not had any other major bleeding events in his life. He underwent several hemostatic challenges in his life including tonsillectomy, wisdom teeth extraction and dental extraction (whole mouth). His tonsillectomy was uncomplicated without bleeding. He stated that most of his dental extractionwent fine without complication, but a few times (2-3 times out of > 10 times) he required additional visit to his dentist for stitches/repacking due to bleeding. He had history of epistaxis, but notfrequent and has never required any cauterization. He denies any history of joint bleed, GI/ bleeding. He stated that his mother had a diagnosis of von Willebrand' s disease and his father had hemophilia(not certain if hemophilia A or B). Previously he had a work up for von Willebrand's disease which was negative. Per PCP, his previous VWF activity was normal at 68% and factor 8 activity was normal at86%. This lab was performed several years ago. He did not recall to have an update coag lab. I think that his spontaneous bruising is due to daily NSAIDs use. I also encourage him to quit alcohol because it can damage his liver which makes clotting factor. He quit drinking since a few weeks ago. While he can inherited VWD from his mother, based on his previous lab, he does not have von Willebr and's disease. His VWF activity and F8 were normal ( > 50%). I reassured him that he would not inherit hemophilia from his father, because it is a X-linked recessive disorder. Today we have performed lab testing which showed normal aPTT, PT, fibrinogen, thrombin time, factor 8 activity. We will repeat VWF activity/antigen as well. Those results are still pending. We have notperformed platelet function testing because he is currently taking indomethacin which can cause platelet dysfunction. In summary, Eugene has no evidence of bleeding disorder. His easy bruising is likely due to NSAIDs use. We encourage him to avoid NSAIDs and stop drinking alcohol. All of his questions were answered at his satisfaction. While I won't schedule to see his back for routine follow up, he knows that he can call our office if he has any questions or concerns. Cary Pulliam MD Hematology Attending Addendum: Lab showed no evidence of von Willebrand's disease. Results for EUGENE MINA ( ) as of 03/08/2017 15:48 Ref. Range 02/28/2017 11:51 PT Latest Ref [...] Range: 50 - 150 % activity 77 documented in this encounter Plan of Treatment Not on filedocumented as of this encounter Results Save Plasma for future Coag Studies (02/28/2017 11:51 AM EST) Analysis Performed At Patho logist Time Signature Save Plasma Sample JENNI HORN saved in [facility] LABORATORY Specimen Anatomical Collection Method Collection Time Receive d Time (Source) Location / / Volume Laterality Blood specimen 02/28/2017 11:51 8 (specimen) AM EST 11:56 AM EST Cary Pulliam MD HEMATOLOGY ORDERABLES Performing Organization Address City/State/ZIP Code Phon e Number [facility] [place] [address] documented in this encounter Visit Diagnoses Diagnosis Ecchymosis Other specified circulatory system disor ders Easy bruising Other symptoms involving skin and integu mentary tissues Family history of bleeding disorder Family history of other blood disorders documented in this encounter Care Teams Environmental Programs Manager Relationship Specialty Start Date End Date Marlena Milton APRN PCP - General Family Medicine 02/09/17 [address] [place] [address] documented as of this encounter
[2022-01-09 09:44] LABS: COVID-19 RT-PCR UVMMC Result Negative (Negative)
== END 2022-01-07 14:23 | disposition home or self-care (01) ==
LOC: LBN 14:22
PROVIDERS: PCP Nurse Practitioner Family; Visit Provider Physician Assistant Medical
DX: Z20.822 Contact with and (suspected) exposure to COVID-19 (principal); R19.7 Diarrhea, unspecified
CPT/HCPCS: U0003

== ENCOUNTER 2022-09-21 11:04 | Outpatient (CLI) | payer BC, SELFPAY ==
--- NOTE | 2022-09-21 | DI.RAD_ITS ---
Exam(s) XR FOOT LT COMPLETE XR ANKLE LT COMPLETE EXAM: XR ANKLE LT COMPLETE CLINICAL HISTORY: LEFT ANKLE PAIN M25.572 INVERSION INJURY 4 DAYS AGO TECHNIQUE: 2D digital imaging was performed. Three views. COMPARISON: CR XR ANKLE RT COMPLETE from 01/27/2021 CR XR FOOT LT COMPLETE from 09/21/2022 FINDINGS: BONES: No acute fracture is present. No bony destructive lesion is seen. JOINTS:The ankle mortise is normally aligned. Two no significant air tibiotalar joint space narrowi ng. Spurring at the tip of the medial malleolus. SOFT TISSUE: Normal. IMPRESSION: Mild degenerative changes of the left ankle. Unremarkable images of the left foot. DATA REPOSITORY: RADIATION DOSE DELIVERED:
== END 2022-09-21 11:24 ==
LOC: DI 11:07
PROVIDERS: PCP Nurse Practitioner Family; Visit Provider Nurse Practitioner Family
DX: M25.572 Pain in left ankle and joints of left foot (principal)
CPT/HCPCS: 73610; 73630

== ENCOUNTER 2023-09-19 20:21 | Emergency (ER) | payer BC, SELFPAY ==
[2023-09-19] VITALS (24 sets, daily range): BP systolic 139–163; BP diastolic 97–112; PULSE 76–98; RESP 18; TEMP 36.9; O2SAT 96–98
--- NOTE | 2023-09-19 21:12 | ED.GENADUL_ITS ---
Discharge Plan Discharge Details Chief Complaint: Cellulitis Primary Care Provider: Unknown,Unknown ED Provider: Amanda Meyers Home Meds and New Rx's Prescriptions: No Action naproxen sodium [Aleve] 220 mg capsule 220 mg PO DAILY PRN HPI General Date/Time Provider Initiated Documentation: 09/19/23 20:54 . HPI Narrative: Eugene is a 39-year-old male who presents to the emergency department today for evaluation of right great toe pain. Today became concerned because it became more reddened and swollen, painful with flexion. He also dropped a bottle of soda on it today, says it hurts more now. Denies other joint redness/swelling/pain, fever/chills, general malaise, other concerns or complaints. He reports symptoms started 5 to 7 weeks ago, admits he has been eating more red meat and drinking alcohol. Usually drinks 7-8 beers a day. He has not had any alcohol to drink for the last 3 days, does not have a history of alcohol withdrawal seizures. He does have a history of gout specifically in the right first MTP, says that this is worse than previous flares. Denies significant past medical history such as diabetes, heart disease, kidney d ysfunction, GI bleeds. Physical exam remarkable for swelling and redness to the MTP of the great toe. No distal numbness/tingling. Limited flexion due to discomfort and swelling. No other foot pain or tenderness to palpation. History and presentation most consistent with gout, though osteoarthritis/inflammatory arthritis also possible. No red flags concerning for septic arthritis at this time, especially based on waxing/waning symptoms over a long period of time. While in the emergency department Eugene received prednisone with some improvement in symptoms. I independently interpreted the following tests: CBC reassuring. CRP, ESR, and uric acid all elevated. X-ray unremarkable, no acute osseous abnormality noted. Reviewed discharge instructions with patient, including importance of follow-up with PCP, side effects of prednisone, red flags indicate need for return to emergency care, and symptomatic management. He is agreeable with plan of care. Related Data Home Medications ?Medication ?Instructions ?Recorded ?Confirmed naproxen sodium 220 mg capsule 220 mg PO DAILY PRN 09/19/23 09/19/23 (Aleve) Allergies Allergy/AdvReac Type Severity Reaction Status Date / Time hay fever Allergy Mild eyes Uncoded 09/19/23 20:32 itch,runny nose General Stated Complaint: GenMedical ADOLPH: 3 Review of Systems Narrative: see HPI Exam Const General: cooperative, healthy appearing, comfortable and no acute distress Nutritional Appearance: average body habitus Extrem Left lower extremity: normal to inspection, full ROM and foot (redness and swelling to MTP great toe) Course Vital Signs Vital signs: Vital Signs Temperature 36.9 C 09/19/23 20:26 Pulse 98 H 09/19/23 20:26 Respiratory Rate 18 09/19/23 20:26 Blood Pressure 142/107 H 09/19/23 20:26 Pulse Oximetry 98 09/19/23 20:26 Temperature 36.9 C 09/19/23 20:38 Temperature Source Temporal Artery Scan 09/19/23 20:38 Pulse 98 H 09/19/23 20:38 Respiratory Rate 18 09/19/23 20:38 Respiratory Effort Normal, Non-Labored 09/19/23 20:31 Blood Pressure 142/107 H 09/19/23 20:38 Blood Pressure Position Sitting 09/19/23 20:38 Pulse Oximetry 98 09/19/23 20:38 Oxygen Delivery Method Room Air 09/19/23 20:38 Oxygen Flow Rate 0 09/19/23 20:26 Pain Level 10 09/19/23 20:38 Medical Decision Making Quality:SDOH Health Related Social Needs: No Data to Display PFSH All Active Problems (Updated 03/26/22 @ 12:17 by Rody Sotomayor) Pain in right paraspinal region (Acute) Prediabetes (Acute) Dupuytren's disease of palm of right hand (Chronic) Medical History (Updated 03/26/22 @ 12:17 by Rody Sotomayor) Chronic back pain Anxiety Erectile dysfunction Hyperlipidemia Alcohol abuse, in remission Osteoarthritis of right hip Social History Smoking/Tobacco Use Status: Current every day Tobacco Type: e-cigarettes Smoking risk assessment performed?: Yes Alcohol Intake: current Alcohol Intake frequency: 3 or more drinks per day Alcohol type: beer Drug use: Never Substance use type: does not use Do you feel safe at home: Yes Do you feel safe in your relationship?: Yes PAWSS Have you Been Recently Intoxicated or Drunk Within the Last 30 days?: No Have you Ever Experienced Previous Episodes of Alcohol Withdrawal?: No Have you ever Experienced Withdrawal Seizures?: No Have you ever Experienced Delirium Tremens(DT)s?: No Have you ever undergone Alcohol Rehabilitation Treatment (i.e, inpt ot outpatient treatment programs)?: No Have you ever Experienced Blackouts?: No Have you ever Combined Alcohol with other Downers within the last 90 days?: No Have you ever Combined Alcohol with any other Substance of Abuse during the last 90 days?: No Positive Blood Alcohol level on Presentation? [PCS.BAL]: No Evidence of Increased Autonomic Activity (i.e. HR>120, tremor, sweating, agitation, nausea)?: No Result: 0
[2023-09-19 21:31] LABS: Abs Immature Grans 0.01 10^3/uL (0.0-0.06); Absolute Basophil Count 0.05 10^3/uL (0.0-0.2); Absolute Eosinophil Count 0.19 10^3/uL (0.0-0.7); Absolute Lymphocyte Count 1.71 10^3/uL (1.2-3.4); Absolute Monocyte Count 0.67 10^3/uL (0.1-0.8); Absolute Neutrophil Count 3.57 10^3/uL (1.2-6.7); Basophils % 0.8 %; Eosinophils % 3.1 %; HCT 39.9 % (40.0-50.0); HGB 13.6 g/dL (13.5-17.5); Immature Grans % 0.2 %; Lymphocytes % 27.6 %; MCH 30.4 pg (27.0-33.0); MCHC 34.1 % (32.0-36.0); MCV 89 fL (80-95); MPV 9.7 fL (8.0-11.0); Monocytes % 10.8 %; Neutrophils % 57.5 %; Platelet Count 226 10^3/uL (130-400); RBC 4.48 10^6/uL (4.36-5.78); RDW 12.2 % (11.8-14.1); RDW-SD 39.5 fL
[2023-09-19 21:34] LABS: ESR 20 mm/hr (0-15)
[2023-09-19 21:43] LABS: C-Reactive Protein 1.33 mg/dL (<or=0.5); Uric Acid 7.6 mg/dL (3.5-7.2)
--- NOTE | 2023-09-19 21:44 | DI.RAD_ITS ---
Exam(s) XR FOOT RT COMPLETE EXAM: XR FOOT RT COMPLETE CLINICAL HISTORY: R great toe pain/swelling, dropped soda on it. TECHNIQUE: 2D digital imaging was performed. Three views. COMPARISON: CR XR FOOT LT COMPLETE from 09/21/2022 FINDINGS: BONES: No acute fracture is present. No bony destructive lesion is seen. JOINTS: No dislocation present. SOFT TISSUE: Swelling of the great toe. No foreign body. IMPRESSION: Unremarkable radiographs of the right foot. DATA REPOSITORY: RADIATION DOSE DELIVERED:
--- NOTE | 2023-09-19 22:24 | DI.VRAD_ITS ---
PROCEDURE INFORMATION: Exam: XR Right Foot Exam date and time: 09/19/2023 9:32 PM Age: 47 years old Clinical indication: Pain and injury or trauma; Blunt trauma; Toes; Right; Injury date: 09/19/23; Patient HX: R great toe pain/swelling, dropped soda on foot TECHNIQUE: Imaging protocol: Radiologic exam of the right foot. Views: 3 or more views. COMPARISON: CR XR FOOT RT COMPLETE 01/27/2021 11:09 AM FINDINGS: Bones/joints: No acute fracture. Soft tissues: Normal. IMPRESSION: No acute findings. Dictated and Authenticated by: Amber Horvath MD. Ordering:JALEEL Patel MD
[2023-09-19] MEDS: predniSONE 20 MG TAB 40 MG PO (22:45)
== END 2023-09-19 23:51 | disposition home or self-care (01) ==
PROVIDERS: Emergency Provider Nurse Practitioner Family
DX: L03.031 Cellulitis of right toe (principal); I10 Essential (primary) hypertension; F17.290 Nicotine dependence, other tobacco product, uncomplicated
CPT/HCPCS: 85652; 99284; 73630; 84550; 85025; 86140; 99283; J7512

== ENCOUNTER 2024-03-05 07:22 | Outpatient (CLI) | payer BC, SELFPAY ==
[2024-03-05 07:48] LABS: Hemoglobin A1C 5.9 % (<5.7)
[2024-03-05 08:17] LABS: ALT 40 U/L (16-63); AST 26 U/L (15-37); Albumin 3.9 g/dL (3.4-5.0); Alkaline Phosphatase 73 U/L (46-116); Anion Gap 9.9 mmol/L (3-11); BUN 26 mg/dL (7-18); Bilirubin, Total 0.43 mg/dL (0.2-1.0); CO2 28.1 mmol/L (21.0-32.0); CREATININE 1.4 mg/dL (0.70-1.30); Calcium 9.2 mg/dL (8.5-10.1); Calculated LDL 193 mg/dL (<100); Chloride 107 mmol/L (98-107); Cholesterol 294 mg/dL (<200); Estimated GFR 61.61 (mL/min/1.73m2); Glucose 130 mg/dL (74-106); HDL Cholesterol 81 mg/dL (40-60); Sodium 145 mmol/L (136-145); TSH (W/Ref FT4) 1.29 uIU/mL (0.36-3.74); Total Protein 8.1 g/dL (6.4-8.2); Triglyceride 103 mg/dL (<150)
[2024-03-05 18:51] LABS: Hepatitis C Ab w Rflx HCV PCR Negative (Negative)
[2024-03-05 19:06] LABS: HIV-1/2 Ag & Ab Screen Negative (Negative)
[2024-03-05 19:08] LABS: HBs Antibody, Quant 700.5 mIU/mL (See Note); Hep B Surface Ab Positive (See Note); Hepatitis B Core Antibody Negative (Negative); Hepatitis B Surface Antigen Negative (Negative)
== END 2024-03-05 07:23 | disposition home or self-care (01) ==
LOC: LBO 07:22
PROVIDERS: PCP Nurse Practitioner Family; Visit Provider Nurse Practitioner Family
DX: E78.5 Hyperlipidemia, unspecified (principal); R73.03 Prediabetes; Z11.4 Encounter for screening for human immunodeficiency virus [HIV]; Z11.59 Encounter for screening for other viral diseases
CPT/HCPCS: 36415; 80053; 80061; 86704; 86706; 86803; 87340; 87389; 83036; 84443

== ENCOUNTER 2024-07-11 07:34 | Outpatient (CLI) | payer BC, SELFPAY ==
[2024-07-11 08:21] LABS: ALT 43 U/L (16-63); AST 27 U/L (15-37); Albumin 3.9 g/dL (3.4-5.0); Alkaline Phosphatase 70 U/L (46-116); Anion Gap 5.7 mmol/L (3-11); BUN 16 mg/dL (7-18); Bilirubin, Total 0.4 mg/dL (0.2-1.0); CO2 30.3 mmol/L (21.0-32.0); CREATININE 1.3 mg/dL (0.70-1.30); Calcium 9.3 mg/dL (8.5-10.1); Calculated LDL 93 mg/dL (<100); Chloride 104 mmol/L (98-107); Cholesterol 193 mg/dL (<200); Estimated GFR 67.34 (mL/min/1.73m2); Glucose 126 mg/dL (74-106); HDL Cholesterol 81 mg/dL (>or=40); Potassium 4.2 mmol/L (3.5-5.1); Sodium 140 mmol/L (136-145); Total Protein 7.6 g/dL (6.4-8.2); Triglyceride 95 mg/dL (<150)
[2024-07-11 08:41] LABS: Uric Acid 7.9 mg/dL (3.5-7.2)
== END 2024-07-11 07:35 | disposition home or self-care (01) ==
LOC: LBO 07:34
PROVIDERS: PCP Nurse Practitioner Family; Visit Provider Nurse Practitioner Family
DX: E78.5 Hyperlipidemia, unspecified (principal)
CPT/HCPCS: 36415; 80053; 80061; 84550